=== PATIENT | male | born 2005 | race Caucasian/White ===

== ENCOUNTER 2024-01-07 17:56 | Emergency (ER) | payer OTHER, SELFPAY ==
[2024-01-07 18:00] VITALS: BP 148/72; PULSE 76; RESP 16; TEMP 36.8; O2SAT 98; BMI 32.3
[2024-01-07] MEDS: PROPARACAINE 0.5% OPHTH SOL 1 DROPS EYE-RIGHT (19:29)
[2024-01-07] MEDS: FLUORESCEIN 1 MG STRIP EYE-RIGHT (19:29)
--- NOTE | 2024-01-07 19:55 | ED.EYEPROB ---
HPI - Eye Problem General Chief complaint: Eye Problems Stated complaint: R Eye Pain Time Seen by Provider: 01/07/24 19:31 Source: patient Mode of arrival: Ambulatory History of Present Illness HPI Narrative: 18-year-old male presents for 1 week of intermittent right eye pain. States that eye will intermittently swell and be generally uncomfortable. prompted him to seek evaluation in the emergency department today since it has kept recurring. Denies use of glasses or contacts, denies change in vision. placed several mqtz-naj-pwzynhr eyedrops that stung, denies other therapies at home. Related Data Allergies Allergy/AdvReac Type Severity Reaction Status Date / Time No Known Drug Allergies Allergy Verified 01/07/24 18:06 Patient History Social History Smoking Status: Former smoker Smoking Status: Former smoker Substance Use Type: does not use Exam Initial Vital Signs Initial Vital Signs: Vital Signs Temperature 98.2 F 01/07/24 18:00 Pulse Rate 76 01/07/24 18:00 Respiratory Rate 16 01/07/24 18:00 Blood Pressure 148/72 H 01/07/24 18:00 Pulse Oximetry 98 01/07/24 18:00 Oxygen Delivery Method Room Air 01/07/24 18:00 Const: Awake, alert, no acute distress, nontoxic appearing HEENT: PERRL, EOMI, No fluoresceine uptake, no foreign body seen. Mild swelling around tear duct without obvious obstruction Skin: Warm, Dry, intact, no rashes Neuro: AO x3, CN II-XII grossly intact, moves all extremities Course Orders Ordered: Discontinued Medications Fluorescein Sodium (Fluorescein 1 Mg Strip) 1 mg EYE-RIGHT NOW ONE Stop: 01/07/24 19:23 Last Admin: 01/07/24 19:29 Dose: 1 mg Documented By: SHEMAR Proparacaine HCl (Proparacaine 0.5% Ophth Brittany) 1 drops EYE-RIGHT NOW ONE Stop: 01/07/24 19:23 Last Admin: 01/07/24 19:29 Dose: 2 drop Documented By: SHEMAR Vital Signs Vital signs: Vital Signs - 8 hr 01/07/24 18:00 Temperature 98.2 F Pulse Rate 76 Respiratory Rate 16 Blood Pressure 148/72 H Pulse Oximetry 98 Oxygen Delivery Method Room Air MDM - Eye Problem Differential Diagnosis Differential diagnosis: Likely corneal abrasion, conjunctivitis and hyphema MDM Narrative Medical decision making narrative: One week of intermittent symptoms. Patient states that symptoms are mostly around the eye, not the eye itself. On exam there was no obvious abnormality identified. No foreign bodies, no fluorescein uptake, vision is normal, eyes pain-free. Mild possible swelling of tear duct, no obvious blockage or evidence of infection. Patient counseled that he may use jotq-ssy-xfhllnu eyedrops such as Pataday for comfort if needed. Otherwise recommended warm compresses several times per day to see if this improves symptoms. If no improvement then I recommended patient be evaluated by an eye doctor for further assessment. Discharge Plan Departure Patient Disposition: Home Clinical Impression: Eye pain Qualifiers: Laterality: right Qualified Code(s): H57.11 - Ocular pain, right eye Instructions: DI for Eye Pain Activity Restrictions/Additional Instructions: You may have a mild amount of swelling behind your right lower tear duct compared to your left tear duct. You did not have any scratches or other abnormalities in your upper or lower eyelids. Use warm compresses several times per day to see if this helps. You may also use cavs-sxr-obauvxi eyedrops such as Pataday to see if this helps the irritation. If you notice continued redness or irritation I do recommend seeing an eye doctor for a more comprehensive eye exam Stand Alone Forms: Patient Portal/API
== END 2024-01-07 20:01 | disposition home or self-care (01) ==
PROVIDERS: Emergency Provider Emergency Medicine
DX: H57.11 Ocular pain, right eye (principal)
CPT/HCPCS: 99282